=== PATIENT | male | born 1985 | race Caucasian/White ===

== ENCOUNTER 2022-10-23 16:40 | Emergency (ER) | payer OTHER ==
[~2022-10-23] VITALS: Ht 182 cm; Wt 59.0 kg
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
[2022-10-23 17:35] LABS: BASOPHILS % (AUTO) 0 % (0-10); EOSINOPHILS # (AUTO) 0.1 10^3/uL (0.0-0.3); EOSINOPHILS % (AUTO) 1 % (0-10); HEMATOCRIT 43 % (40-54); HEMOGLOBIN 14.5 g/dL (13.3-17.7); LYMPHOCYTES # (AUTO) 1.8 X 10^3 (1.0-4.0); LYMPHOCYTES % (AUTO) 16 % (12-44); MEAN CORPUSCULAR HEMOGLOBIN 32 pg (25-34); MEAN CORPUSCULAR HGB CONC 34 g/dL (32-36); MEAN CORPUSCULAR VOLUME 94 fL (80-99); MEAN PLATELET VOLUME 10.1 fL (9.0-12.2); MONOCYTES % (AUTO) 10 % (0-12); NEUTROPHILS # (AUTO) 7.9 X 10^3 (1.8-7.8); NEUTROPHILS % (AUTO) 72 % (42-75); PLATELET COUNT 251 10^3/uL (130-400); WHITE BLOOD COUNT 10.9 10^3/uL (4.3-11.0)
[2022-10-23 17:45] LABS: ALBUMIN 4.3 GM/DL (3.2-4.5); POTASSIUM 3.8 MMOL/L (3.6-5.0)
[2022-10-23 17:46] LABS: CALCIUM 9.2 MG/DL (8.5-10.1)
[2022-10-23 17:47] LABS: TOTAL PROTEIN 6.7 GM/DL (6.4-8.2)
[2022-10-23 17:49] LABS: BILIRUBIN,TOTAL 0.3 MG/DL (0.1-1.0)
[2022-10-23 17:51] LABS: CREATININE SERUM 1.06 MG/DL (0.60-1.30)
[2022-10-23] MEDS ORDERED: IOHEXOL 350 MG/ML 100 ML (OMNIPAQUE 350) VIAL IV ONE (18:15)
[2022-10-23] MEDS ORDERED: NS 100 ML (IVPB) BAG IV ONE (18:15)
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
[2022-10-23] MEDS ORDERED: ACHD5005 PO (19:33)
[2022-10-23] MEDS ORDERED: IBUP-1773 PO (19:33)
[2022-10-23 20:08] VITALS: BP 106/77
== END 2022-10-23 20:08 | disposition home or self-care (01) ==
LOC: EDUNIT# 16:40 → ER 16:42
DX: S30.1XXA Contusion of abdominal wall, initial encounter (principal); S80.02XA Contusion of left knee, initial encounter; S80.01XA Contusion of right knee, initial encounter; F17.210 Nicotine dependence, cigarettes, uncomplicated; Z28.310 Unvaccinated for COVID-19; V59.50XA Passenger in pick-up truck or van injured in collision with unspecified motor vehicles in traffic accident, initial encounter; Y92.410 Unspecified street and highway as the place of occurrence of the external cause
CPT/HCPCS: 36415; 74177; 80053; 85025

== ENCOUNTER → 2022-10-28 | Outpatient (CLI) | payer OTHER ==
[~2022-10-28] MED LIST: ACHD5005 PO; IBUP-1773 PO
== END ==
LOC: ORTHO 12:44
PROVIDERS: ATTEND Orthopaedic Surgery
DX: S82.131A Displaced fracture of medial condyle of right tibia, initial encounter for closed fracture (principal); S80.02XA Contusion of left knee, initial encounter; X58.XXXA Exposure to other specified factors, initial encounter
CPT/HCPCS: 99203

== ENCOUNTER → 2022-11-15 | Outpatient (CLI) | payer MEDICAID, OTHER ==
--- NOTE | 2022-11-15 13:22 | Diagnostic Imaging Report ---
Exam: CT right knee without contrast. Date: November 15, 2022. Indication: 37-year-old male, right knee pain. Recent injury. Evaluation for proximal tibial fracture. Comparison: Knee radiographs October 23, 2022. Technique: Axial CT images of the right knee were obtained without contrast. Coronal and sagittal reformats were obtained and provided. Findings: There is no identified acute fracture. There is no knee joint effusion. The joint spaces are well preserved. There is a benign bone island in the medial aspect of the proximal tibial epiphysis measuring up to 7 mm in size. There is no Berg's cyst. There is no focal fluid collection or prominent soft tissue swelling. Impression: 1. No acute fracture or other acute osseous abnormality of the right knee. 2. No current knee joint effusion. Well-preserved joint spaces. 3. CT is limited for evaluation of internal derangement. If there is concern for cruciate, meniscus, or other internal derangement, this would be more optimally evaluated with MRI right knee without contrast. Dictated by: Dictated on workstation # [id number]
== END ==
LOC: RAD 12:15
PROVIDERS: ATTEND Orthopaedic Surgery
DX: S82.134A Nondisplaced fracture of medial condyle of right tibia, initial encounter for closed fracture (principal); X58.XXXA Exposure to other specified factors, initial encounter
CPT/HCPCS: 73700